=== PATIENT | male | born 1970 | race Caucasian/White ===

== ENCOUNTER 2020-01-20 07:30 | Day surgery (SDC) | payer BC ==
[~2020-01-20] VITALS: Ht 193 cm; Wt 122.1 kg
[2020-01-20 07:41] VITALS: BP 150/100; PULSE 50; TEMP 97.5
[2020-01-20] MEDS ORDERED: TEGRETOL 2200 MG/TA1 PO (07:41)
[2020-01-20 10:00] VITALS: BP 143/73; PULSE 54; TEMP 97.1
--- NOTE | 2020-01-20 10:00 | NUR ---
Patient arrives to [facility] bay [address] via cart, accompanied by Endo RN Radha Li. He is alert and oriented. He stops and uses the restroom when he arrives. Then ambulates to his room and is sitting in the recliner. Monitoring is applied - VSS on room air. He denies pain or nausea. He is offered and receives water to drink.
--- NOTE | 2020-01-20 10:04 | NUR ---
Dr. Brooke comes to the bedside and speaks with the patient.
[2020-01-20 10:15] VITALS: BP 142/92; PULSE 41
--- NOTE | 2020-01-20 10:15 | NUR ---
Patient's pulse pre-op was 50bpm. Pulse post-op is now around 40bpm. He is alert and oriented. He denies feeling light headed or nauseous. He does state he has some mild dizziness. BP is stable. Will continue to closely monitor and notify Dr. Brooke if no improvement.
[2020-01-20 10:30] VITALS: BP 144/89; PULSE 41
--- NOTE | 2020-01-20 10:30 | NUR ---
Pulse remains low, 38-[address] Brooke is called and notified of bradycardia. Patient is placed on the classroom monitor and it shows sinus bradycardia. Dr. Brooke has no further orders, but would like anesthesia to be notified and get their opinion on interventions. Patient remains alert and oriented, asymptomatic except for slight dizziness.
[2020-01-20 10:45] VITALS: BP 138/99; PULSE 50
--- NOTE | 2020-01-20 10:45 | NUR ---
Patient's bradycardia has improved, now back to baseline of 50bpm. LIZETTE Melo was notified by phone of bradycardia and ordered the patient to ambulate with staff prior to discharge and make sure he is asymptomatic. Dr. Brooke is notified of this and she agrees to discharge the patient once his HR maintains around 50bpm and he is able to ambulate without symptoms or drop in HR.
[2020-01-20 11:00] VITALS: BP 137/92; PULSE 50
--- NOTE | 2020-01-20 11:00 | NUR ---
Patient's HR has maintained 50 bpm. He ambulated with staff without symptoms and HR increased to 60s with activity. Patient has drank water and tolerated PO well. He has met discharge criteria. Will return with discharge instructions.
--- NOTE | 2020-01-20 11:24 | NUR ---
Discharge instructions are discussed with the patient. He denies any questions and verbalizes understanding. PIV is removed with catheter intact and hemostasis achieved. The patient changes to his clothing independently. He is escorted to the exit via wheelchair and discharged to home with ride in private vehicle with at 1124.
== END 2020-01-20 11:24 | disposition home or self-care (01) ==
LOC: SDCO 07:30
DX: Z12.11 Encounter for screening for malignant neoplasm of colon (principal); D12.4 Benign neoplasm of descending colon; D12.5 Benign neoplasm of sigmoid colon; D12.8 Benign neoplasm of rectum; G40.909 Epilepsy, unspecified, not intractable, without status epilepticus; I10 Essential (primary) hypertension; E78.1 Pure hyperglyceridemia; R79.89 Other specified abnormal findings of blood chemistry; D69.6 Thrombocytopenia, unspecified; D72.819 Decreased white blood cell count, unspecified; E66.01 Morbid (severe) obesity due to excess calories; Z87.891 Personal history of nicotine dependence; Z20.828 Contact with and (suspected) exposure to other viral communicable diseases; Z79.899 Other long term (current) drug therapy; Z88.2 Allergy status to sulfonamides; Z88.8 Allergy status to other drugs, medicaments and biological substances
CPT/HCPCS: J2704; J7120

== ENCOUNTER → 2021-10-16 | Outpatient (CLI) | payer BC ==
[~2021-10-16] MED LIST: TEGRETOL 2200 MG/TA1 PO
== END ==
LOC: COL.RAD 10-10 11:15
DX: I10 Essential (primary) hypertension (principal)